=== PATIENT | male | born 1960 | race African-American/Black ===

== ENCOUNTER 2021-11-16 10:25 | Inpatient (IN) | payer MEDICARE ==
[2021-11-16 11:05] LABS: Bilirubin Neg (Negative); Blood, Urine Negative (Negative); Clarity Clear (Clear); Glucose, Urine (Dipstick) >=1000 mg/dL (Negative); Ketone, Urine Negative (Negative); Leukocyte Negative (Negative); Nitrite Negative (Negative); Protein, Urine (Dipstick) Negative (Neg-Trace); Specific Gravity, Urine 1.005 (1.002-1.036); Urobilinogen Normal mg/dL (Less than 2)
[2021-11-16 11:11] LABS: #Eosinphils 0.1 10x3/uL (0.0-0.5); #Monocytes 0.6 10x3/uL (0.0-1.1); #Neutrophils 4.9 10x3/uL (1.5-8.4); %Basophils 0.3 % (0.0-2.0); %Lymphocytes 21.8 % (18.0-47.0); %Monocytes 8.7 % (0.0-10.0); %Neutrophils 67.8 % (40.0-75.0); Hemoglobin 5.6 g/dL (13.5-17.5); Mean Corpuscular HGB CONC 30.1 g/dL (32.0-36.0); Mean Corpuscular Hemoglobin 21.2 pg (27.0-33.0); Mean Corpuscular Volume 70.5 fl (81.2-95.1); Mean Platelet Volume 8.3 fl (7.4-10.4); Platelet Count 393 10x3/uL (150-450); RBC Distribution Width 20.3 % (11.5-14.5); Red Blood Cell (RBC) Count 2.64 10x6/uL (4.32-5.72); White Blood Cell (WBC) Count 7.3 10x3/uL (3.5-10.5)
[2021-11-16 11:14] LABS: PTT 23.7 sec (22.0-33.0); Prothrombin Time 10.9 sec (9.5-12.1)
[2021-11-16 11:25] LABS: ALT (SGPT) 8 U/L (8-55); AST (SGOT) 11 U/L (5-34); Albumin 3.8 g/dL (3.5-5.0); Alkaline Phosphatase 71 U/L (40-110); Anion Gap 14 mmol/L (10-20); BUN (Urea Nitrogen) 14 mg/dL (8.4-25.7); Bilirubin, Total 0.7 mg/dL (0.2-1.2); CK (CPK) 100 U/L (30-200); Calc. Creatinine Clearance 0 mL/min (70-130); Calcium 9.9 mg/dL (7.8-10.44); Carbon Dioxide 26 mmol/L (22-29); Chloride 99 mmol/L (98-107); Globulin 3.7 g/dL (2.4-3.5); Glucose 117 mg/dL (70-105); Lipase 16 U/L (8-78); Protein, Total 7.5 g/dL (6.0-8.3); Sodium 136 mmol/L (136-145)
[2021-11-16 11:38] LABS: Potassium 2.9 mmol/L (3.5-5.1)
[2021-11-16 11:53] LABS: Schistocytes SLIGHT = 2-5 cells (100X) (0-1/hpf)
[2021-11-16 11:54] LABS: Anisocytosis SLIGHT = 6-15 cells (100X) (0-5/hpf); Hypochromia SLIGHT = 6-15 cells (100X) (0-5/hpf); Poikilocytosis SLIGHT = 6-15 cells (100X) (0-5/hpf); Polychromasia SLIGHT = 2-3 cells (100X) (0-2/hpf)
[2021-11-16 11:55] LABS: Platelet Morphology Comment Appears Adequate
[2021-11-16 11:59] LABS: CKMB 2.1 ng/mL (0-6.6)
[2021-11-16] MEDS ORDERED: Potassium Chloride 20 MEQ TAB ONE (12:14)
[2021-11-16] MEDS ORDERED: Aspirin Chewable 81 MG TAB ONE (12:14)
[2021-11-16] MEDS ORDERED: Pantoprazole 40 MG VIAL ONE (12:15)
[2021-11-16] MEDS ORDERED: Ondansetron PF 4 MG/2 ML Vial IVP PRN (13:24)
[2021-11-16] MEDS ORDERED: Ondansetron ODT 4 MG TAB PO PRN (13:24)
[2021-11-16] MEDS ORDERED: Acetaminophen 650 MG Suppository PR PRN (13:24)
[2021-11-16 13:35] VITALS: BMI 40.2
[2021-11-16] MEDS ORDERED: Dextrose 5% in Water 1,000 ML IV PRN (14:59)
[2021-11-16] MEDS ORDERED: Dextrose 50% Abboject 50 ML SYRINGE SLOW IVP PRN (14:59)
[2021-11-16] MEDS ORDERED: Insulin Regular 300 UNITS/3 ML VIAL SC PRN ×2 (14:59)
[2021-11-16 15:01] LABS: Hemoglobin 6.2 g/dL (13.5-17.5)
[2021-11-16 19:55] LABS: Hemoglobin 6.6 g/dL (13.5-17.5)
[2021-11-16] MEDS: NS 0.9% w/ 20 MEQ KCL 1,000 ML/1,000 ML BAG IV SCH (22:44)
[2021-11-17 02:16] LABS: #Eosinphils 0.1 10x3/uL (0.0-0.5); #Monocytes 0.6 10x3/uL (0.0-1.1); #Neutrophils 4.9 10x3/uL (1.5-8.4); %Basophils 0.3 % (0.0-2.0); %Eosinophils 1.4 % (0.0-6.0); %Lymphocytes 25.5 % (18.0-47.0); %Monocytes 8.3 % (0.0-10.0); %Neutrophils 64.4 % (40.0-75.0); Hemoglobin 6.2 g/dL (13.5-17.5); Mean Corpuscular Hemoglobin 22.5 pg (27.0-33.0); Mean Corpuscular Volume 72.7 fl (81.2-95.1); Mean Platelet Volume 8.2 fl (7.4-10.4); Platelet Count 321 10x3/uL (150-450); RBC Distribution Width 21.2 % (11.5-14.5); Red Blood Cell (RBC) Count 2.75 10x6/uL (4.32-5.72); White Blood Cell (WBC) Count 7.6 10x3/uL (3.5-10.5)
[2021-11-17 02:29] LABS: Anion Gap 15 mmol/L (10-20); BUN (Urea Nitrogen) 13 mg/dL (8.4-25.7); Calc. Creatinine Clearance 150 mL/min (70-130); Calcium 9.6 mg/dL (7.8-10.44); Carbon Dioxide 24 mmol/L (22-29); Chloride 105 mmol/L (98-107); Glucose 182 mg/dL (70-105); Potassium 3.2 mmol/L (3.5-5.1); Sodium 141 mmol/L (136-145)
[2021-11-17] MEDS: NS 0.9% w/ 20 MEQ KCL 1,000 ML/1,000 ML BAG IV SCH ×2 (04:37→18:29)
[2021-11-17] MEDS ORDERED: HYDROmorphone 0.5 MG/0.5 ML SYRINGE ONE (06:48)
[2021-11-17] MEDS ORDERED: PROPOFOL 20 ML ONE ×2 (06:57→06:58)
[2021-11-17] MEDS ORDERED: Lidocaine 2% MPF 10 ML AMP (For Epidural Use) ONE (06:58)
[2021-11-17 08:25] LABS: Hemoglobin 6.4 g/dL (13.5-17.5)
[2021-11-17] MEDS ORDERED: Carvedilol 25 MG TAB PO SCH (12:00)
[2021-11-17 14:32] LABS: Hemoglobin 6.4 g/dL (13.5-17.5)
[2021-11-17] MEDS ORDERED: Furosemide 20 MG/2 ML VIAL SLOW IVP SCH (18:00)
[2021-11-17] MEDS: Carvedilol 25 MG TAB PO SCH (22:18)
[2021-11-18] MEDS ORDERED: Melatonin 3 MG TAB PO SCH ×2 (01:30→23:00)
[2021-11-18 02:42] LABS: #Eosinphils 0.1 10x3/uL (0.0-0.5); #Monocytes 0.7 10x3/uL (0.0-1.1); #Neutrophils 5.9 10x3/uL (1.5-8.4); %Basophils 0.4 % (0.0-2.0); %Eosinophils 1.2 % (0.0-6.0); %Lymphocytes 16.5 % (18.0-47.0); %Monocytes 8.9 % (0.0-10.0); %Neutrophils 72.8 % (40.0-75.0); Mean Corpuscular HGB CONC 31.3 g/dL (32.0-36.0); Mean Corpuscular Hemoglobin 23.1 pg (27.0-33.0); Mean Corpuscular Volume 73.9 fl (81.2-95.1); Platelet Count 295 10x3/uL (150-450); RBC Distribution Width 21.2 % (11.5-14.5); Red Blood Cell (RBC) Count 3.03 10x6/uL (4.32-5.72); White Blood Cell (WBC) Count 8.2 10x3/uL (3.5-10.5)
[2021-11-18 02:57] LABS: Anion Gap 15 mmol/L (10-20); BUN (Urea Nitrogen) 12 mg/dL (8.4-25.7); Calc. Creatinine Clearance 169 mL/min (70-130); Calcium 9.4 mg/dL (7.8-10.44); Carbon Dioxide 24 mmol/L (22-29); Chloride 106 mmol/L (98-107); Glucose 166 mg/dL (70-105); Potassium 3.5 mmol/L (3.5-5.1); Sodium 141 mmol/L (136-145)
[2021-11-18] MEDS ORDERED: HYDROcodone/Acetaminophen 5/325 mg Tablet PO SCH ×2 (05:30→23:00)
[2021-11-18] MEDS: Carvedilol 25 MG TAB PO SCH ×2 (08:19→21:07)
[2021-11-18 14:47] LABS: Reflex for Review?? YES
[2021-11-18] MEDS: Acetaminophen 325 MG TAB PO PRN (15:53)
[2021-11-18] MEDS ORDERED: Mometasone 200 MCG/Formoterol 5 MCG 120 PUFF INHALER INH SCH (18:30)
[2021-11-18 21:18] LABS: Hemoglobin 7.7 g/dL (13.5-17.5)
[2021-11-18] MEDS: glipiZIDE 5 MG TAB PO SCH (22:56)
[2021-11-19] MEDS: Acetaminophen 325 MG TAB PO PRN ×3 (00:10→15:38)
[2021-11-19 03:36] LABS: #Eosinphils 0.1 10x3/uL (0.0-0.5); #Monocytes 1.1 10x3/uL (0.0-1.1); #Neutrophils 7.5 10x3/uL (1.5-8.4); %Basophils 0.3 % (0.0-2.0); %Lymphocytes 13.9 % (18.0-47.0); %Monocytes 11.1 % (0.0-10.0); Hemoglobin 6.9 g/dL (13.5-17.5); Mean Corpuscular HGB CONC 31.2 g/dL (32.0-36.0); Mean Corpuscular Hemoglobin 23.5 pg (27.0-33.0); Mean Corpuscular Volume 75.2 fl (81.2-95.1); Mean Platelet Volume 8.5 fl (7.4-10.4); Platelet Count 281 10x3/uL (150-450); RBC Distribution Width 22.3 % (11.5-14.5); Red Blood Cell (RBC) Count 2.94 10x6/uL (4.32-5.72); White Blood Cell (WBC) Count 10.2 10x3/uL (3.5-10.5)
[2021-11-19 03:53] LABS: Anion Gap 13 mmol/L (10-20); BUN (Urea Nitrogen) 13 mg/dL (8.4-25.7); Calc. Creatinine Clearance 175 mL/min (70-130); Calcium 9.3 mg/dL (7.8-10.44); Carbon Dioxide 23 mmol/L (22-29); Chloride 105 mmol/L (98-107); Glucose 142 mg/dL (70-105); Potassium 3.2 mmol/L (3.5-5.1); Sodium 138 mmol/L (136-145)
[2021-11-19] MEDS ORDERED: Potassium Chloride 20 MEQ in Premix Bag 1 BAG IVPB SCH (05:15)
[2021-11-19] MEDS ORDERED: Sodium Chloride 0.9% 1,000 ML IV SCH (05:15)
[2021-11-19] MEDS ORDERED: Potassium Chloride 20 MEQ TAB PO SCH (05:30)
[2021-11-19] MEDS: Empagliflozin 25 MG TAB PO SCH (08:05)
[2021-11-19] MEDS: Ferrous Gluconate 324 MG TAB PO SCH (08:05)
[2021-11-19] MEDS: Carvedilol 25 MG TAB PO SCH ×2 (08:05→21:29)
[2021-11-19] MEDS: Torsemide 20 MG TAB PO SCH (08:05)
[2021-11-19] MEDS: glipiZIDE 5 MG TAB PO SCH ×2 (08:05→21:29)
[2021-11-19] MEDS ORDERED: Iopamidol 300 61% 100 ML VIAL FS ONE (09:33)
[2021-11-19] MEDS ORDERED: GoLYTELY 4,000 ml Bottle PO SCH (16:00)
[2021-11-19 18:34] LABS: Reflex for Review?? YES
[2021-11-19 18:35] LABS: Bilirubin Neg (Negative); Blood, Urine Negative (Negative); Glucose, Urine (Dipstick) >=1000 mg/dL (Negative); Ketone, Urine Negative (Negative); Leukocyte Negative (Negative); Nitrite Negative (Negative); Protein, Urine (Dipstick) Negative (Neg-Trace); Urobilinogen Normal mg/dL (Less than 2)
[2021-11-19 18:42] LABS: Clarity Clear (Clear)
[2021-11-19 19:02] LABS: RBC/HPF 0-3 HPF (0-3); Squamous Epithelial 0-3 HPF (0-3); WBC/HPF 0-3 HPF (0-3)
[2021-11-19] MEDS: oxyCODONE 5 MG TAB PO PRN (19:02)
[2021-11-19 19:03] LABS: Bacteria/HPF 1+ HPF (None Seen)
[2021-11-19 20:12] LABS: Eosinophils 2 % (0-10); Lymphocytes 17 % (21-51); Monocytes 7 % (0-10); Neutrophil 74 % (42-75); Nucleated RBC 2 % (0)
[2021-11-19 20:15] LABS: Anisocytosis SLIGHT = 6-15 cells (100X) (0-5/hpf); Elliptocytes SLIGHT = 2-5 cells (100X) (0-1/hpf); Giant Platelets SLIGHT; Hypochromia SLIGHT = 6-15 cells (100X) (0-5/hpf); Macrocytosis SLIGHT = 6-15 cells (100X) (0-5/hpf); Microcytosis SLIGHT = 6-15 cells (100X) (0-5/hpf); Platelet Morphology Comment Appears Adequate; Polychromasia SLIGHT = 2-3 cells (100X) (0-2/hpf); Schistocytes SLIGHT = 2-5 cells (100X) (0-1/hpf); Target Cells SLIGHT = 2-5 cells (100X) (0-1/hpf)
[2021-11-19 22:24] LABS: Hemoglobin 8.4 g/dL (13.5-17.5)
[2021-11-20 04:12] LABS: #Eosinphils 0.1 10x3/uL (0.0-0.5); #Monocytes 1.3 10x3/uL (0.0-1.1); #Neutrophils 8.6 10x3/uL (1.5-8.4); %Basophils 0.2 % (0.0-2.0); %Eosinophils 0.9 % (0.0-6.0); %Lymphocytes 11.1 % (18.0-47.0); %Monocytes 11.1 % (0.0-10.0); %Neutrophils 75.9 % (40.0-75.0); Hemoglobin 8.1 g/dL (13.5-17.5); Mean Corpuscular HGB CONC 30.9 g/dL (32.0-36.0); Mean Corpuscular Hemoglobin 23.7 pg (27.0-33.0); Mean Corpuscular Volume 76.6 fl (81.2-95.1); Mean Platelet Volume 8.5 fl (7.4-10.4); Platelet Count 272 10x3/uL (150-450); RBC Distribution Width 22.4 % (11.5-14.5); Red Blood Cell (RBC) Count 3.42 10x6/uL (4.32-5.72); White Blood Cell (WBC) Count 11.3 10x3/uL (3.5-10.5)
[2021-11-20 04:29] LABS: Anion Gap 16 mmol/L (10-20); BUN (Urea Nitrogen) 16 mg/dL (8.4-25.7); Calc. Creatinine Clearance 154 mL/min (70-130); Calcium 9.9 mg/dL (7.8-10.44); Carbon Dioxide 23 mmol/L (22-29); Chloride 104 mmol/L (98-107); Glucose 128 mg/dL (70-105); Potassium 3.4 mmol/L (3.5-5.1); Sodium 140 mmol/L (136-145)
[2021-11-20 04:38] LABS: Anisocytosis MODERATE=16-30 cells (100X) (0-5/hpf); Basophilic Stippling SLIGHT = 1-2 cells (100X) (None Seen); Hypochromia SLIGHT = 6-15 cells (100X) (0-5/hpf); Macrocytosis SLIGHT = 6-15 cells (100X) (0-5/hpf); Microcytosis SLIGHT = 6-15 cells (100X) (0-5/hpf); Platelet Morphology Comment Appears Adequate; Polychromasia SLIGHT = 2-3 cells (100X) (0-2/hpf); Target Cells SLIGHT = 2-5 cells (100X) (0-1/hpf)
[2021-11-20] MEDS: Empagliflozin 25 MG TAB PO SCH (08:21)
[2021-11-20] MEDS: glipiZIDE 5 MG TAB PO SCH ×2 (08:21→21:31)
[2021-11-20] MEDS: Ferrous Gluconate 324 MG TAB PO SCH (08:24)
[2021-11-20] MEDS: Carvedilol 25 MG TAB PO SCH ×2 (08:24→21:31)
[2021-11-20] MEDS: Torsemide 20 MG TAB PO SCH (08:27)
[2021-11-20] MEDS ORDERED: Lidocaine 1% PF 5 ML VIAL ONE (10:40)
[2021-11-20] MEDS ORDERED: PROPOFOL 40 ML ONE (11:11)
[2021-11-20 12:32] LABS: Iron 13 ug/dL (65-175); Iron Binding Capacity, Total 320 mcg/dL (261-462)
[2021-11-20] MEDS ORDERED: Labetalol HCl 100 MG/20 ML VIAL SLOW IVP PRN (15:28)
[2021-11-20] MEDS ORDERED: Losartan 25 MG TAB PO SCH (15:30)
[2021-11-20] MEDS: Acetaminophen 325 MG TAB PO PRN (16:15)
[2021-11-21 04:15] LABS: #Eosinphils 0.1 10x3/uL (0.0-0.5); #Neutrophils 7.6 10x3/uL (1.5-8.4); %Basophils 0.2 % (0.0-2.0); %Lymphocytes 12.1 % (18.0-47.0); %Monocytes 10.2 % (0.0-10.0); %Neutrophils 75.8 % (40.0-75.0); Hemoglobin 7.6 g/dL (13.5-17.5); Mean Corpuscular HGB CONC 31.7 g/dL (32.0-36.0); Mean Corpuscular Hemoglobin 24.4 pg (27.0-33.0); Mean Corpuscular Volume 76.9 fl (81.2-95.1); Mean Platelet Volume 8.1 fl (7.4-10.4); Platelet Count 234 10x3/uL (150-450); RBC Distribution Width 23.3 % (11.5-14.5); Red Blood Cell (RBC) Count 3.12 10x6/uL (4.32-5.72)
[2021-11-21 04:38] LABS: Anion Gap 13 mmol/L (10-20); BUN (Urea Nitrogen) 25 mg/dL (8.4-25.7); Calc. Creatinine Clearance 122 mL/min (70-130); Calcium 9.6 mg/dL (7.8-10.44); Carbon Dioxide 26 mmol/L (22-29); Chloride 103 mmol/L (98-107); Glucose 148 mg/dL (70-105); Potassium 3.2 mmol/L (3.5-5.1); Sodium 139 mmol/L (136-145)
[2021-11-21 04:40] LABS: Platelet Morphology Comment Appears Adequate
[2021-11-21 04:42] LABS: Anisocytosis SLIGHT = 6-15 cells (100X) (0-5/hpf); Hypochromia SLIGHT = 6-15 cells (100X) (0-5/hpf); Macrocytosis SLIGHT = 6-15 cells (100X) (0-5/hpf); Microcytosis SLIGHT = 6-15 cells (100X) (0-5/hpf); Polychromasia SLIGHT = 2-3 cells (100X) (0-2/hpf); Schistocytes SLIGHT = 2-5 cells (100X) (0-1/hpf); Target Cells SLIGHT = 2-5 cells (100X) (0-1/hpf)
[2021-11-21] MEDS: Empagliflozin 25 MG TAB PO SCH (10:17)
[2021-11-21] MEDS: glipiZIDE 5 MG TAB PO SCH ×2 (10:17→21:57)
[2021-11-21] MEDS: Carvedilol 25 MG TAB PO SCH ×2 (10:17→21:57)
[2021-11-21] MEDS: Losartan Potassium 50 MG TAB PO SCH (10:17)
[2021-11-21] MEDS: Torsemide 20 MG TAB PO SCH (10:17)
[2021-11-21] MEDS: oxyCODONE 5 MG TAB PO PRN ×2 (15:02→22:11)
[2021-11-21] MEDS ORDERED: Potassium Chloride 20 MEQ TAB PO SCH (21:45)
[2021-11-22 05:44] LABS: #Eosinphils 0.1 10x3/uL (0.0-0.5); #Neutrophils 6.4 10x3/uL (1.5-8.4); %Basophils 0.2 % (0.0-2.0); %Eosinophils 1.5 % (0.0-6.0); %Lymphocytes 12.2 % (18.0-47.0); %Neutrophils 74.6 % (40.0-75.0); Hemoglobin 7.1 g/dL (13.5-17.5); Mean Corpuscular HGB CONC 30.2 g/dL (32.0-36.0); Mean Corpuscular Hemoglobin 23.5 pg (27.0-33.0); Mean Corpuscular Volume 77.8 fl (81.2-95.1); Mean Platelet Volume 8.9 fl (7.4-10.4); Platelet Count 280 10x3/uL (150-450); RBC Distribution Width 24.2 % (11.5-14.5); Red Blood Cell (RBC) Count 3.02 10x6/uL (4.32-5.72); White Blood Cell (WBC) Count 8.6 10x3/uL (3.5-10.5)
[2021-11-22 06:01] LABS: Anion Gap 14 mmol/L (10-20); BUN (Urea Nitrogen) 33 mg/dL (8.4-25.7); Bilirubin, Total 0.9 mg/dL (0.2-1.2); Calc. Creatinine Clearance 109 mL/min (70-130); Calcium 9.3 mg/dL (7.8-10.44); Carbon Dioxide 25 mmol/L (22-29); Chloride 103 mmol/L (98-107); Glucose 189 mg/dL (70-105); Potassium 3.4 mmol/L (3.5-5.1); Sodium 139 mmol/L (136-145)
[2021-11-22 07:15] LABS: Anisocytosis SLIGHT = 6-15 cells (100X) (0-5/hpf); Hypochromia SLIGHT = 6-15 cells (100X) (0-5/hpf); Macrocytosis SLIGHT = 6-15 cells (100X) (0-5/hpf); Microcytosis SLIGHT = 6-15 cells (100X) (0-5/hpf); Platelet Morphology Comment Appears Adequate; Poikilocytosis SLIGHT = 6-15 cells (100X) (0-5/hpf); Polychromasia SLIGHT = 2-3 cells (100X) (0-2/hpf)
[2021-11-22 07:16] LABS: Schistocytes SLIGHT = 2-5 cells (100X) (0-1/hpf); Target Cells SLIGHT = 2-5 cells (100X) (0-1/hpf)
[2021-11-22] MEDS ORDERED: Lactated Ringer's 1,000 ML IV SCH (08:15)
[2021-11-22] MEDS: Losartan Potassium 50 MG TAB PO SCH (09:32)
[2021-11-22] MEDS: Empagliflozin 25 MG TAB PO SCH (09:32)
[2021-11-22] MEDS: Torsemide 20 MG TAB PO SCH (09:32)
[2021-11-22] MEDS: Carvedilol 25 MG TAB PO SCH ×2 (09:32→21:05)
[2021-11-22] MEDS: glipiZIDE 5 MG TAB PO SCH ×2 (09:32→21:05)
[2021-11-22 13:37] LABS: Hemoglobin A2 2.1 % (1.8-3.2); Hemoglobin F 0 % (0.0-2.0)
[2021-11-23] MEDS ORDERED: Melatonin 3 MG TAB PO PRN (02:15)
[2021-11-23] MEDS: traMADol HCl 50 MG TAB PO PRN ×2 (02:28→09:56)
[2021-11-23] MEDS: Acetaminophen 325 MG TAB PO PRN (02:28)
[2021-11-23 05:33] LABS: #Eosinphils 0.2 10x3/uL (0.0-0.5); #Monocytes 0.8 10x3/uL (0.0-1.1); #Neutrophils 5.7 10x3/uL (1.5-8.4); %Basophils 0.3 % (0.0-2.0); %Eosinophils 2.1 % (0.0-6.0); %Lymphocytes 15.1 % (18.0-47.0); %Monocytes 10.4 % (0.0-10.0); %Neutrophils 71.5 % (40.0-75.0); Mean Corpuscular Hemoglobin 23.7 pg (27.0-33.0); Mean Corpuscular Volume 79.2 fl (81.2-95.1); Mean Platelet Volume 8.7 fl (7.4-10.4); Platelet Count 286 10x3/uL (150-450); RBC Distribution Width 23.4 % (11.5-14.5); Red Blood Cell (RBC) Count 3.37 10x6/uL (4.32-5.72)
[2021-11-23 05:47] LABS: Anion Gap 14 mmol/L (10-20); BUN (Urea Nitrogen) 29 mg/dL (8.4-25.7); Calc. Creatinine Clearance 146 mL/min (70-130); Calcium 9.4 mg/dL (7.8-10.44); Carbon Dioxide 26 mmol/L (22-29); Chloride 104 mmol/L (98-107); Glucose 175 mg/dL (70-105); Potassium 3.2 mmol/L (3.5-5.1); Sodium 141 mmol/L (136-145)
[2021-11-23 06:37] LABS: Anisocytosis MODERATE=16-30 cells (100X) (0-5/hpf); Microcytosis SLIGHT = 6-15 cells (100X) (0-5/hpf); Poikilocytosis SLIGHT = 6-15 cells (100X) (0-5/hpf)
[2021-11-23 06:38] LABS: Hypochromia MODERATE=16-30 cells (100X) (0-5/hpf); Ovalocytes SLIGHT = 2-5 cells (100X) (0-1/hpf); Platelet Morphology Comment Appears Adequate; Schistocytes SLIGHT = 2-5 cells (100X) (0-1/hpf); Target Cells SLIGHT = 2-5 cells (100X) (0-1/hpf)
[2021-11-23] MEDS: Losartan Potassium 50 MG TAB PO SCH (08:56)
[2021-11-23] MEDS: glipiZIDE 5 MG TAB PO SCH ×2 (08:56→20:00)
[2021-11-23] MEDS: Torsemide 20 MG TAB PO SCH (08:56)
[2021-11-23] MEDS: Empagliflozin 25 MG TAB PO SCH (08:56)
[2021-11-23] MEDS: Carvedilol 25 MG TAB PO SCH ×2 (08:56→20:00)
[2021-11-23] MEDS: oxyCODONE 5 MG TAB PO PRN ×2 (13:30→20:05)
[2021-11-23 19:39] VITALS: BP 120/66; TEMP 99.5
[2021-11-23 20:33] LABS: SARS-CoV-2 NAA Rapid Test DETECTED (NotDetected)
[2021-11-25] MEDS ORDERED: SEMAGLUTIDE 0.25 MG/0.2 ML SQ SCH (09:00)
== END 2021-11-24 00:02 | disposition short-term general hospital (02) | DRG 811 ==
LOC: CSHERS 10:25 → CSHTELE 12:46
PROVIDERS: ADMIT Family Medicine; ATTEND Hospitalist
PROC: 30233N1 Transfusion of Nonautologous Red Blood Cells into Peripheral Vein, Percutaneous Approach (ICD-10-PCS; 2021-11-16)
PROC: 8E0ZXY6 Isolation (ICD-10-PCS; 2021-11-16)
PROC: 0DB98ZX Excision of Duodenum, Via Natural or Artificial Opening Endoscopic, Diagnostic (ICD-10-PCS; principal; 2021-11-17)
PROC: 0DJD8ZZ Inspection of Lower Intestinal Tract, Via Natural or Artificial Opening Endoscopic (ICD-10-PCS; 2021-11-20)
DX: D50.9 Iron deficiency anemia, unspecified (principal); I21.A1 Myocardial infarction type 2; U07.1 COVID-19; K57.31 Diverticulosis of large intestine without perforation or abscess with bleeding; I10 Essential (primary) hypertension; E11.9 Type 2 diabetes mellitus without complications; M19.90 Unspecified osteoarthritis, unspecified site; I44.0 Atrioventricular block, first degree; I45.10 Unspecified right bundle-branch block; E78.5 Hyperlipidemia, unspecified; G89.29 Other chronic pain; M54.9 Dorsalgia, unspecified; E87.6 Hypokalemia; I87.2 Venous insufficiency (chronic) (peripheral); R50.9 Fever, unspecified; K31.9 Disease of stomach and duodenum, unspecified; K31.7 Polyp of stomach and duodenum; K64.8 Other hemorrhoids; Z20.822 Contact with and (suspected) exposure to COVID-19; Z96.643 Presence of artificial hip joint, bilateral; Z96.659 Presence of unspecified artificial knee joint; Z79.899 Other long term (current) drug therapy; Z79.84 Long term (current) use of oral hypoglycemic drugs
CPT/HCPCS: 36415; 36416; 36430; 71045; 74177; 80048; 80053; 81001; 81003; 82247; 82248; 82274; 82550; 82553; 82728; 83010; 83021; 83540; 83550; 83615; 83690; 83880; 84484; 85025; 85046; 85060; 85610; 85730; 86850; 86880; 86900; 86901; 87040; 87086; 88305; 93005; 94760; 96374; C9113; J1170; J1815; J1940; J2704; J3480; J7050; J7120; P9016; Q9967; U0002; U0003; U0005

== ENCOUNTER 2021-12-28 13:48 | Outpatient (CLI) | payer MEDICARE | END 2021-12-28 13:49 | disposition home or self-care (01) | LOC: CSHULT 13:48 | PROVIDERS: ATTEND Family Medicine | DX: M79.89 Other specified soft tissue disorders (principal); I82.403 Acute embolism and thrombosis of unspecified deep veins of lower extremity, bilateral | CPT/HCPCS: 93970 ==